=== PATIENT | male | born 1965 | race Caucasian/White ===

== ENCOUNTER 2018-04-14 03:51 | Emergency (ER) | payer MEDICAID ==
[~2018-04-14] VITALS: Ht 172.7 cm; Wt 87.5 kg
[~2018-04-14 03:51] MED LIST: CEPH-572 PO; SULF1TAB49 PO
[2018-04-14] MEDS ORDERED: CefTRIAXone/D5W-Rocephin 1gm 50 ML IV ONE (04:30)
[2018-04-14 04:48] VITALS: BP 138/78
[2018-04-14] MEDS ORDERED: HYDROcodone/acetaminophen 10/325mg tab PO ONE (05:15)
== END 2018-04-14 05:32 | disposition home or self-care (01) ==
LOC: ER 03:52
DX: L03.115 Cellulitis of right lower limb (principal); F17.200 Nicotine dependence, unspecified, uncomplicated; Z79.899 Other long term (current) drug therapy
CPT/HCPCS: 87070; 96365; 99284; A6449; J0696

== ENCOUNTER 2019-02-13 05:56 | Emergency (ER) | payer MEDICAID ==
[~2019-02-13] VITALS: Ht 185.4 cm; Wt 90.9 kg
[2019-02-13] MEDS ORDERED: moxifloxacin 0.5% ophthalmic drops 3ml RIGHTEYE SCH (06:30)
[2019-02-13] MEDS ORDERED: proparacaine 0.5% ophthalmic drops 15ml EACHEYE ONE (06:35)
[2019-02-13] MEDS ORDERED: HYDR-3965 PO (06:39)
[2019-02-13 07:00] VITALS: BP 166/74
== END 2019-02-13 07:03 | disposition home or self-care (01) ==
LOC: ER 05:57
DX: S05.01XA Injury of conjunctiva and corneal abrasion without foreign body, right eye, initial encounter (principal); G89.29 Other chronic pain; Z98.890 Other specified postprocedural states; Z79.899 Other long term (current) drug therapy; W50.0XXA Accidental hit or strike by another person, initial encounter; Y93.89 Activity, other specified; Y92.89 Other specified places as the place of occurrence of the external cause; Y99.8 Other external cause status
CPT/HCPCS: 99283

== ENCOUNTER 2020-05-18 14:54 | Emergency (ER) | payer MEDICAID ==
[~2020-05-18] VITALS: Ht 172.7 cm; Wt 95.5 kg
[2020-05-18] MEDS ORDERED: morphine 4 MG/ML inj SYRINge IV ONE (15:30)
[2020-05-18] MEDS ORDERED: etomidate 2mg/ml inj. IV ONE (15:35)
[2020-05-18] MEDS ORDERED: NAPR-56 PO (16:16)
[2020-05-18 16:46] VITALS: BP 127/77
== END 2020-05-18 17:03 | disposition home or self-care (01) ==
LOC: ER 14:54
DX: S43.084A Other dislocation of right shoulder joint, initial encounter (principal); M25.511 Pain in right shoulder; G89.29 Other chronic pain; Z98.890 Other specified postprocedural states; W19.XXXA Unspecified fall, initial encounter; Y93.89 Activity, other specified; Y92.89 Other specified places as the place of occurrence of the external cause; Y99.8 Other external cause status
CPT/HCPCS: 23650; 73020; 73030; 94760; 99152; 99285

== ENCOUNTER 2020-08-05 14:18 | Inpatient (IN) | payer MEDICAID ==
[~2020-08-05] VITALS: Ht 172.7 cm; Wt 100.0 kg
--- NOTE | 2020-08-05 15:13 | NUR ---
Patient placed in room and is resting comfortably with no requests.
[2020-08-05] MEDS ORDERED: normal saline 1000ML IV soln IV ONE (15:35)
[2020-08-05] MEDS ORDERED: ampicillin/sulbac 3gm/NS 100ml 100 ML IV STA (15:39)
[2020-08-05 15:59] LABS: BASOPHILS # (AUTO) 0.1 X10'3 (0-0.2); BASOPHILS % (AUTO) 0.3 % (0-1); EOSINOPHILS % (AUTO) 0.3 % (0-6); HEMATOCRIT 47.8 % (42.0-52.0); HEMOGLOBIN 16.7 g/dl (14.0-17.9); LYMPHOCYTES # (AUTO) 1.5 X10'3 (1.1-4.8); LYMPHOCYTES % (AUTO) 9.4 % (21-51); MEAN CORPUSCULAR HEMOGLOBIN 29.9 PG (27.0-31.0); MEAN CORPUSCULAR VOLUME 85.5 FL (78-98); MEAN PLATELET VOLUME 7.5 FL (7.4-10.4); MONOCYTES # (AUTO) 1.5 X10'3 (0-0.9); MONOCYTES % (AUTO) 9.4 % (2-12); NEUTROPHILS # (AUTO) 12.7 X10'3 (1.8-7.7); NEUTROPHILS % (AUTO) 80.6 % (42-75); PLATELET COUNT 207 X10'3 (140-440); RED BLOOD COUNT 5.59 X10'6 (4.70-6.10); RED CELL DISTRIBUTION WIDTH 13.5 % (11.5-14.5); WHITE BLOOD COUNT 15.7 X10'3 (4.5-11.0)
[2020-08-05 16:28] LABS: ALANINE AMINOTRANSFERASE 35 U/L (12-78); ALBUMIN/GLOBULIN RATIO 1.1 (1.1-1.5); ALKALINE PHOSPHATASE 95 IU/L (46-116); ANION GAP 12 (8-16); ASPARTATE AMINO TRANSFERASE 13 U/L (10-37); BILIRUBIN,TOTAL 1.5 MG/DL (0.1-1.0); BLOOD UREA NITROGEN 13 MG/DL (7-18); BUN/CREATININE RATIO 9.8 (5.4-32.0); CALCIUM 8.6 MG/DL (8.5-10.1); CHLORIDE 100 MMOL/L (99-107); CREATININE 1.33 MG/DL (0.60-1.10); GLUCOSE 92 MG/DL (70-104); POTASSIUM 3.7 MMOL/L (3.5-5.1); SODIUM 135 MMOL/L (135-145); TOTAL CARBON DIOXIDE 23.2 MMOL/L (24-32); TOTAL PROTEIN 7.7 G/DL (6.4-8.2); eGFR 56 ML/MIN
[2020-08-05] MEDS ORDERED: iohexol 300mg/ml 100ml inj. ONE (16:37)
[2020-08-05 16:52] LABS: PARTIAL THROMBOPLASTIN TIME 31 SECONDS (22-32)
[2020-08-05] MEDS ORDERED: acetaminophen 1,000mg/100ml IV 100 ML IV STA (17:13)
--- NOTE | 2020-08-05 17:46 | NUR ---
Dr Traylor in to evaluate Patient. to see if Hospitalist will admit or if Pt needs transferred. Acetaminophin IV cancelled as pt is no longer febrile.
[2020-08-05] MEDS ORDERED: morphine 2 MG/ML inj. syringe IV PRN ×2 (17:55)
[2020-08-05] MEDS ORDERED: magnesium 4gm in 100ml NS 100 ML IV PRN (17:55)
[2020-08-05] MEDS ORDERED: HYDROcodone/acetaminophen 5mg/325mg tablet PO PRN (17:55)
[2020-08-05] MEDS ORDERED: potassium Cl 20 mEq SR tablet PO PRN ×2 (17:55)
[2020-08-05] MEDS ORDERED: ondansetron/PF 4mg/2ml inj IV PRN (17:55)
[2020-08-05] MEDS ORDERED: magnesium 2GM in 50ml NS 50 ML IV PRN (17:55)
[2020-08-05] MEDS ORDERED: potassium CL 10mEq/100ml bag 100 ML IV PRN ×2 (17:55)
[2020-08-05] MEDS ORDERED: mag hydrox/Alum hydrox/simeth 30ml oral suspension PO PRN (17:55)
[2020-08-05] MEDS ORDERED: magnesium Cl slow-release 64mg tablet PO PRN (17:55)
[2020-08-05] MEDS ORDERED: magnesium hydroxide 30ml (MOM) UD suspension PO PRN (17:55)
[2020-08-05] MEDS ORDERED: acetaminophen 325mg tablet PO PRN (17:55)
[2020-08-05] MEDS: normal saline 1000ml 1,000 ML IV SCH (18:09)
[2020-08-05] MEDS ORDERED: NO HOME MEDS (18:31)
--- NOTE | 2020-08-05 19:40 | NUR ---
Received patient report from ER nurse Jung HENSLEY. Will assume patient care.
[2020-08-05 21:00] VITALS: BP 175/67
[2020-08-05] MEDS ORDERED: temazepam 15mg capsule PO PRN (21:00)
[2020-08-05] MEDS: K and/or MAG REPLACEMENT MC SCH (21:08)
[2020-08-05] MEDS: heparin, porcine 5000 units/ml vial SQ SCH (21:15)
[2020-08-05] MEDS: vancomycin/NS 1 GM ADD-VANTAGE 250 ML IV SCH (21:49)
[2020-08-05] MEDS: HYDROcodone/acetaminophen 10/325mg tab PO PRN (22:07)
[2020-08-05 22:30] LABS: URINE AMPHETAMINE SCREEN POSITIVE (Neg); URINE BARBITUATE SCREEN NEGATIVE (Neg); URINE BENZODIAZEPINES SCREEN NEGATIVE (Neg); URINE CANNABINOID SCREEN POSITIVE (Neg); URINE COCAINE SCREEN NEGATIVE (Neg); URINE METHADONE SCREEN NEGATIVE (Neg); URINE OPIATE SCREEN NEGATIVE (Neg); URINE PHENCYCLIDINE SCREEN NEGATIVE (Neg)
[2020-08-06] VITALS: BP 133/77
[2020-08-06] MEDS: normal saline 1000ml 1,000 ML IV SCH ×3 (04:20→23:55)
[2020-08-06 05:28] LABS: BASOPHILS # (AUTO) 0.1 X10'3 (0-0.2); BASOPHILS % (AUTO) 0.5 % (0-1); EOSINOPHILS # (AUTO) 0.1 X10'3 (0-0.9); EOSINOPHILS % (AUTO) 0.5 % (0-6); HEMATOCRIT 42.7 % (42.0-52.0); HEMOGLOBIN 14.8 g/dl (14.0-17.9); LYMPHOCYTES % (AUTO) 16.9 % (21-51); MEAN CORPUSCULAR HEMOGLOBIN 29.8 PG (27.0-31.0); MEAN CORPUSCULAR HGB CONC 34.6 g/dL (33.0-36.5); MEAN CORPUSCULAR VOLUME 85.9 FL (78-98); MEAN PLATELET VOLUME 7.8 FL (7.4-10.4); MONOCYTES # (AUTO) 1.1 X10'3 (0-0.9); MONOCYTES % (AUTO) 9.7 % (2-12); NEUTROPHILS # (AUTO) 8.5 X10'3 (1.8-7.7); NEUTROPHILS % (AUTO) 72.4 % (42-75); PLATELET COUNT 193 X10'3 (140-440); RED BLOOD COUNT 4.97 X10'6 (4.70-6.10); RED CELL DISTRIBUTION WIDTH 13.5 % (11.5-14.5); WHITE BLOOD COUNT 11.7 X10'3 (4.5-11.0)
[2020-08-06 05:43] LABS: ALANINE AMINOTRANSFERASE 26 U/L (12-78); ALBUMIN 3.2 G/DL (3.4-5.0); ALKALINE PHOSPHATASE 74 IU/L (46-116); ANION GAP 7 (8-16); ASPARTATE AMINO TRANSFERASE 18 U/L (10-37); BILIRUBIN,TOTAL 0.9 MG/DL (0.1-1.0); BLOOD UREA NITROGEN 12 MG/DL (7-18); BUN/CREATININE RATIO 9.7 (5.4-32.0); CALCIUM 8.1 MG/DL (8.5-10.1); CHLORIDE 104 MMOL/L (99-107); CREATININE 1.24 MG/DL (0.60-1.10); GLUCOSE 99 MG/DL (70-104); MAGNESIUM 1.8 MG/DL (1.5-2.4); POTASSIUM 4.1 MMOL/L (3.5-5.1); SODIUM 138 MMOL/L (135-145); TOTAL CARBON DIOXIDE 27.3 MMOL/L (24-32); TOTAL PROTEIN 6.5 G/DL (6.4-8.2); eGFR 61 ML/MIN
--- NOTE | 2020-08-06 06:29 | NUR ---
Patient in room [facility]. I have received report from AYDEN Vazquez and had the opportunity to ask questions and assume patient care.
--- NOTE | 2020-08-06 06:32 | NUR ---
Problems reprioritized. Patient report given, questions answered & plan of care reviewed with Taylor HENSLEY.
--- NOTE | 2020-08-06 06:56 | NUR ---
Patient in room [facility]. I have received report from Aracely HENSLEY and had the opportunity to ask questions and assume patient care.
[2020-08-06 07:00] VITALS: BP 112/63
[2020-08-06] MEDS: K and/or MAG REPLACEMENT MC SCH ×2 (08:00→20:00)
[2020-08-06] MEDS: heparin, porcine 5000 units/ml vial SQ SCH ×2 (08:01→21:11)
[2020-08-06] MEDS: amox tr/clav. pot 400mg/5ml 100ml suspension PO SCH ×2 (08:08→17:34)
[2020-08-06] MEDS: vancomycin/NS 1 GM ADD-VANTAGE 250 ML IV SCH ×2 (10:22→21:12)
--- NOTE | 2020-08-06 11:02 | NUR ---
Problems reprioritized. Patient report given, questions answered & plan of care reviewed with Maricruz HENSLEY.
--- NOTE | 2020-08-06 11:05 | NUR ---
Patient in room [facility]. I have received report from Taylor HENSLEY and had the opportunity to ask questions and assume patient care.
[2020-08-06 11:15] VITALS: BP 126/71
--- NOTE | 2020-08-06 11:25 | NUR ---
Reviewed and agree with Pt Physical Assessment done by Taylor HENSLEY at 0800.
[2020-08-06 11:30] VITALS: BP 126/71
--- NOTE | 2020-08-06 11:30 | NUR ---
Pt's Maricarmne phoned, wanted call back at [phone]. Per Pt, he will call her in a bit.
--- NOTE | 2020-08-06 12:04 | NUR ---
Student Medication Administration: For this medication-pass time frame, all medication were reviewed, dispensed, administered and documented per hospital policy by [facility] assistant administrator.
--- NOTE | 2020-08-06 12:04 | NUR ---
Student documentation: I have reviewed and agree with all interventions, assessments performed and documented by [facility], executive director of nursing.
--- NOTE | 2020-08-06 12:07 | NUR ---
Problems reprioritized. Patient report given, questions answered & plan of care reviewed with AYDEN Wall.
--- NOTE | 2020-08-06 18:23 | NUR ---
Problems reprioritized. Patient report given, questions answered & plan of care reviewed with Aracely HENSLEY.
[2020-08-06 20:00] VITALS: BP 141/70
[2020-08-06] MEDS: lactobacillus rhamnosus 10,000 MMU CELLS/CAPSULE PO SCH (21:11)
[2020-08-06] MEDS: HYDROcodone/acetaminophen 10/325mg tab PO PRN (21:18)
[2020-08-07] VITALS: BP 133/76
[2020-08-07] MEDS: normal saline 1000ml 1,000 ML IV SCH (02:17)
--- NOTE | 2020-08-07 06:11 | NUR ---
Problems reprioritized. Patient report given, questions answered & plan of care reviewed with [facility] RN and Student nurse Will RN.
--- NOTE | 2020-08-07 06:30 | NUR ---
Patient in room [facility]. I have received report from AYDEN Jessica and had the opportunity to ask questions and assume patient care.
--- NOTE | 2020-08-07 06:51 | NUR ---
Patient in room [facility]. I have received report from AYDEN Ramsay and had the opportunity to ask questions and assume patient care.
[2020-08-07 07:00] VITALS: BP 118/75
[2020-08-07] MEDS ORDERED: VANCOMYCIN LEVEL IV ONE (07:30)
[2020-08-07] MEDS: heparin, porcine 5000 units/ml vial SQ SCH (07:59)
[2020-08-07] MEDS: vancomycin/NS 1 GM ADD-VANTAGE 250 ML IV SCH (07:59)
[2020-08-07] MEDS: K and/or MAG REPLACEMENT MC SCH (08:00)
[2020-08-07] MEDS: amox tr/clav. pot 400mg/5ml 100ml suspension PO SCH (08:27)
[2020-08-07] MEDS: lactobacillus rhamnosus 10,000 MMU CELLS/CAPSULE PO SCH (08:27)
[2020-08-07 09:00] LABS: BASOPHILS # (AUTO) 0.1 X10'3 (0-0.2); BASOPHILS % (AUTO) 0.6 % (0-1); EOSINOPHILS # (AUTO) 0.2 X10'3 (0-0.9); HEMATOCRIT 44.5 % (42.0-52.0); HEMOGLOBIN 15.5 g/dl (14.0-17.9); LYMPHOCYTES # (AUTO) 1.7 X10'3 (1.1-4.8); LYMPHOCYTES % (AUTO) 18.4 % (21-51); MEAN CORPUSCULAR HGB CONC 34.8 g/dL (33.0-36.5); MEAN CORPUSCULAR VOLUME 86.2 FL (78-98); MEAN PLATELET VOLUME 7.7 FL (7.4-10.4); MONOCYTES # (AUTO) 0.5 X10'3 (0-0.9); MONOCYTES % (AUTO) 5.7 % (2-12); NEUTROPHILS # (AUTO) 6.8 X10'3 (1.8-7.7); NEUTROPHILS % (AUTO) 73.3 % (42-75); PLATELET COUNT 203 X10'3 (140-440); RED BLOOD COUNT 5.17 X10'6 (4.70-6.10); RED CELL DISTRIBUTION WIDTH 13.7 % (11.5-14.5); WHITE BLOOD COUNT 9.3 X10'3 (4.5-11.0)
[2020-08-07 09:04] LABS: ALANINE AMINOTRANSFERASE 31 U/L (12-78); ALBUMIN 3.2 G/DL (3.4-5.0); ALBUMIN/GLOBULIN RATIO 0.9 (1.1-1.5); ALKALINE PHOSPHATASE 79 IU/L (46-116); ASPARTATE AMINO TRANSFERASE 14 U/L (10-37); BILIRUBIN,TOTAL 0.5 MG/DL (0.1-1.0); BLOOD UREA NITROGEN 14 MG/DL (7-18); CALCIUM 8.2 MG/DL (8.5-10.1); GLUCOSE 99 MG/DL (70-104); TOTAL CARBON DIOXIDE 29.1 MMOL/L (24-32); TOTAL PROTEIN 6.8 G/DL (6.4-8.2); VANCOMYCIN,TROUGH 6.8 UG/ML (6.0-14.0)
--- NOTE | 2020-08-07 09:05 | NUR ---
Student Medication Administration: For this medication-pass time frame, all medication were reviewed, dispensed, administered and documented per hospital policy by [facility] professional nursing assistant.
[2020-08-07 09:41] LABS: ANION GAP 3 (8-16); BUN/CREATININE RATIO 14.9 (5.4-32.0); CHLORIDE 106 MMOL/L (99-107); CREATININE 0.94 MG/DL (0.60-1.10); SODIUM 138 MMOL/L (135-145); eGFR 83 ML/MIN
--- NOTE | 2020-08-07 10:19 | NUR ---
Problems reprioritized. Patient report given, questions answered & plan of care reviewed with AYDEN Ramsay.
[2020-08-07] MEDS ORDERED: AMOX400S76 PO (10:32)
[2020-08-07 11:00] VITALS: BP 136/70
[2020-08-07] MEDS ORDERED: vancomycin/NS 1 GM ADD-VANTAGE 250 ML IV SCH (16:00)
[2020-08-08] MEDS ORDERED: VANCOMYCIN LEVEL IV ONE (15:30)
== END 2020-08-07 12:37 | disposition home or self-care (01) | DRG 383 ==
LOC: ER 14:18 → ED HOLD 17:55 → SUR 3N 19:55
PROVIDERS: ADMIT Internal Medicine; ATTEND Internal Medicine
PROC: BN251ZZ Computerized Tomography (CT Scan) of Facial Bones using Low Osmolar Contrast (ICD-10-PCS; principal; 2020-08-05)
DX: L03.213 Periorbital cellulitis (principal); F15.10 Other stimulant abuse, uncomplicated; F17.210 Nicotine dependence, cigarettes, uncomplicated; N18.3 Chronic kidney disease, stage 3 (moderate); G89.29 Other chronic pain; R03.0 Elevated blood-pressure reading, without diagnosis of hypertension; K02.9 Dental caries, unspecified; L03.211 Cellulitis of face; K04.7 Periapical abscess without sinus; Z71.51 Drug abuse counseling and surveillance of drug abuser
CPT/HCPCS: 36415; 70487; 80053; 80202; 80305; 83605; 83735; 84145; 85025; 85610; 85730; 87040; 87081; 96365; 99285; G0378; J0295; J1644; J3370; J7030; Q9967

== ENCOUNTER 2021-02-23 22:21 | Emergency (ER) | payer MEDICAID ==
[~2021-02-23] VITALS: Ht 172.7 cm; Wt 100.0 kg
[~2021-02-23 22:21] MED LIST changes: +AMOX400S76 PO; -CEPH-572 PO; +NO HOME MEDS; -SULF1TAB49 PO
[2021-02-24] MEDS ORDERED: oxyCODONE/APAP 5-325mg tablet PO ONE (02:05)
[2021-02-24] MEDS ORDERED: LIDOcaine 1% W/epiNEPHrine 1:200,000 10ml vial IJ ONE (02:05)
[2021-02-24 04:21] LABS: APPEARANCE,SYNOVIAL FLUID HAZY; COLOR,SYNOVIAL FLUID YELLOW
[2021-02-24 04:22] LABS: SYN RBC 6930 /CU MM (0); SYN WBC 0 /CU MM (0-200); SYNOVIAL FLUID CRYSTALS QT NO CRYSTALS SEEN
[2021-02-24 04:49] VITALS: BP 120/88
== END 2021-02-24 05:05 | disposition home or self-care (01) ==
LOC: ER 22:21
DX: M25.561 Pain in right knee (principal); G89.29 Other chronic pain; F17.200 Nicotine dependence, unspecified, uncomplicated; F12.90 Cannabis use, unspecified, uncomplicated; F15.90 Other stimulant use, unspecified, uncomplicated; Z98.890 Other specified postprocedural states; W10.8XXA Fall (on) (from) other stairs and steps, initial encounter; Y93.89 Activity, other specified; Y92.89 Other specified places as the place of occurrence of the external cause; Y99.8 Other external cause status
CPT/HCPCS: 20610; 87070; 89051; 89060; 99285

== ENCOUNTER 2024-02-27 15:40 | Emergency (ER) | payer MEDICAID ==
[~2024-02-27] VITALS: Ht 172.7 cm; Wt 94.5 kg
[2024-02-27] MEDS ORDERED: ketorolac trometh. 30mg/ml inj. IM ONE (16:30)
[2024-02-27] MEDS: oxyCODONE IR 5mg (immed. release) tablet PO ONE (16:38)
[2024-02-27] MEDS: ondansetron 4mg rapidly disintigrating tab PO ONE (16:39)
[2024-02-27] MEDS: orphenadrine citrate 60mg/2ml inj. IM ONE (16:41)
[2024-02-27] MEDS: ketorolac tromethamine 15mg/ml inj. IM ONE (16:42)
[2024-02-27] MEDS: HYDROmorphone inj. 0.5 MG/0.5 ML DISP.SYRIN IM ONE (18:13)
[2024-02-27] MEDS ORDERED: NAPR-56 PO (18:20)
[2024-02-27] MEDS ORDERED: OXYC-658 PO (18:29)
[2024-02-27] MEDS ORDERED: BACL10TA2 PO (18:30)
[2024-02-27 18:43] VITALS: BP 121/70; PULSE 74; RESP 15; TEMP 97.3; O2SAT 95
== END 2024-02-27 18:48 | disposition home or self-care (01) ==
LOC: ER 15:40
DX: M54.50 Low back pain, unspecified (principal); F12.90 Cannabis use, unspecified, uncomplicated; F15.90 Other stimulant use, unspecified, uncomplicated; Z79.899 Other long term (current) drug therapy; Z79.2 Long term (current) use of antibiotics
CPT/HCPCS: 72131; 96372; 99285; J1170; J1885; J2360

== ENCOUNTER 2025-04-12 14:08 | Emergency (ER) | payer MEDICAID ==
[~2025-04-12] VITALS: Ht 174 cm; Wt 100.0 kg
[~2025-04-12 14:08] MED LIST changes: +BACL10TA2 PO
[2025-04-12 14:20] VITALS: BP 140/81; PULSE 77; RESP 18; TEMP 97.1; O2SAT 100
--- NOTE | 2025-04-12 15:22 | Physician Documentation ---
History of Present Illness ~ Chief Complaint: Wound Stated Complaint: FALL HAND AND LEG PAIN Time Seen by MD: 15:34 Primary Medical Doctor: HILTON WHEELER HPI This 59-year-old male who presents with right hand pain and right white pain this a wound swelling to right white three days after a fall striking a wood pile. Patient reports no fever though reports chills. Patient reports his right 2nd finger is tender when gripping objects though otherwise nontender. Tetanus within 5 years?: No Medication Reconciliation Allergies: Coded Allergies: No Known Allergies (Unverified , 02/13/19) Scheduled Amoxicillin/Potassium Clav (Amox Tr-K Clv 400-57/5 Susp), 400 MG PO BID@0830,1730 Baclofen (Baclofen), 1 TAB PO Q8H Clindamycin HCl (Clindamycin HCl CAPSULE), 3 CAP PO TID Miscellaneous Medications Home Med List (No Home Medications), (Reported) Past Medical History Past Medical History: Chronic Pain Past Surgical History: orthopedic surgeries Alcohol Use: None Drug Use: marijuana, methamphetamine Lives with: Family Lives In: Home Occupation: employed Review of Systems ROS Wound to right white and right hand pain as stated above in the HPI, otherwise all systems are reviewed and negative. Physical Exam Vital Signs: Temperature: 97.1, Source: Temporal, Heart Rate: 77, Respiratory Rate: 18, BP: 140/81, Pulse Oximetry: 100, Weight: 100.000 Oxygen Flow Rate: 0 Physical Exam VITALS: Reviewed and as above. GENERAL: Alert, nontoxic appearing, no apparent distress. RESPIRATORY: No increased work of breathing, no respiratory distress, speaking in full clear sentences MUSCULOSKELETAL: Minimal Swelling without erythema or ecchymosis to dorsal radial aspect of right hand, right anterior white minimally swollen, no obvious deformity, strength and range of motion intact to fingers of right hand, sensation intact, brisk capillary refill SKIN: approximately 2.5 cm x 2.5 cm abrasion to the anterior of right white with purulent drainage and surrounding erythema, no fluctuance, no induration Progress Results/Orders Results/Orders Orders - BERNARDA COOMBS Hand, Complete (3vw Min) (04/12/25 14:56) Tib/Fib (04/12/25 14:56) Completed Orders - BERNARDA COOMBS Hand, Complete (3vw Min) (04/12/25 14:56) Tib/Fib (04/12/25 14:56) Vital Signs 04/12/25 14:20 Temp 97.1 Pulse 77 Resp 18 B/P (MAP) 140/81 Pulse Ox 100 O2 Flow Rate 0 EKG/XRAY/CT/US/VASC/MRI Bone/Soft Tissue X-Ray (Ext.) #1: Additional Comment CLINICAL INDICATION: trauma TECHNIQUE: 3 radiographic views of the right hand were obtained. Comparison: None FINDINGS/IMPRESSION: There is no evidence of acute fracture or dislocation. Chronic right 5th metacarpal shaft fracture. The visualized joint space is well maintained. The alignment is anatomical. There is no radiopaque foreign body. Electronically Signed by:NAPOLEON ROWLAND MD Date & Time: 04/12/251534 Dictated by: NAPOLEON ROWLAND MD Dictation date and time: 04/12/251534 I have reviewed and agree with the radiology report. I have reviewed and interpreted the imaging as: No fracture or dislocation Bone/Soft Tissue X-Ray (Ext.) #2: Additional Comment CLINICAL INDICATION: trauma TECHNIQUE: 4 radiographic views of the right tibia/fibula were obtained. Comparison: None FINDINGS/IMPRESSION: There is no evidence of acute fracture or dislocation. The visualized joint space is well maintained. The alignment is anatomical. There is no radiopaque foreign body. Electronically Signed by:NAPOLEON ROWLAND MD Date & Time: 04/12/251533 Dictated by: NAPOLEON ROWLAND MD Dictation date and time: 04/12/251533 I have reviewed and agree with the radiology report. I have reviewed and interpreted the imaging as: No fracture or dislocation Medical Decision Making Findings This 59-year-old male presented with abrasion to the right white with some surrounding erythema and pain to his right hand after a fall approximately three days prior onto a wood pile, x-rays were obtained of both sites without evidence of fracture or dislocation. Physical exam of the hand demonstrated full strength and sensation intact with brisk capillary refill indicating hand is neurovascularly intact without evidence of tendon injury, there was some pain elicited to the hand with minimal swelling consistent with localized soft tissue injury. Physical exam of the right white demonstrated an abrasion with evidence of infection and early cellulitis, as there was some purulent discharge from the wound patient will be treated with Bactrim. Physical exam did not demonstrate evidence of retained foreign bodies in hands or white. Otherwise patient's physical exam was benign and vital signs stable, patient is appropriate for outpatient follow up. Patient provided home care instructions and return to care precautions which he verbalized understanding of. Differential Dx:Considerations: Include: Abscess, Cellulitis, Other (Fractures, tendon injury, neurovascular injury, retained foreign body) Departure Time of Disposition: 16:37 Disposition: 01 HOME / SELF CARE / HOMELESS Impression: Primary Impression: Wound cellulitis Additional Impression: Right hand pain Condition: Improved Discharge Instructions: Cellulitis, Adult Additional Instructions: Please take the antibiotics as prescribed. Use a warm moist compress on the area and clean the area two to three times a day until drainage from the wounds stops, keep the area clean dry and covered. You may use ibuprofen and or Tylenol as directed by [id number] package as needed for pain. Please follow up with your primary care provider in the next few days. Please return to the emergency department for any new or worsening concerning symptoms including but not limited to worsening pain or swelling, or if you develop a fever above 100.4 No swimming until your wound is healed Referrals: NO PRIMARY CARE PROVIDER (PCP) Prescriptions Clindamycin HCl (Clindamycin HCl CAPSULE) 150 Mg Capsule 3 CAP PO TID for 7 Days, #63 CAP Prov: BERNARDA COOMBSP 04/12/25 Education Educated: Patient Educated regarding: diagnosis, treatment, prognosis, need for follow up Signature Scribe Signature: No scribe Attestation: The note accurately reflects work and decisions made by me.RENATA Hernandez 04/13/25 02:16 BERNARDA COOMBS April 12, 2025 15:22
--- NOTE | 2025-04-12 15:36 | RADIOLOGY REPORT ---
CLINICAL INDICATION: trauma TECHNIQUE: 4 radiographic views of the right tibia/fibula were obtained. Comparison: None FINDINGS/IMPRESSION: There is no evidence of acute fracture or dislocation. The visualized joint space is well maintained. The alignment is anatomical. There is no radiopaque foreign body.
--- NOTE | 2025-04-12 15:37 | RADIOLOGY REPORT ---
CLINICAL INDICATION: trauma TECHNIQUE: 3 radiographic views of the right hand were obtained. Comparison: None FINDINGS/IMPRESSION: There is no evidence of acute fracture or dislocation. Chronic right 5th metacarpal shaft fracture. The visualized joint space is well maintained. The alignment is anatomical. There is no radiopaque foreign body.
[2025-04-12] MEDS ORDERED: CLIN-214 PO (16:42)
== END 2025-04-12 17:06 | disposition home or self-care (01) ==
LOC: ER 14:08
DX: S80.811A Abrasion, right lower leg, initial encounter (principal); L03.113 Cellulitis of right upper limb; X58.XXXA Exposure to other specified factors, initial encounter; Y93.89 Activity, other specified; Y92.89 Other specified places as the place of occurrence of the external cause; Y99.8 Other external cause status
CPT/HCPCS: 73130; 73590; 99284

== ENCOUNTER 2025-04-17 23:23 | Inpatient (IN) | payer MEDICAID ==
[~2025-04-17] VITALS: Ht 175.3 cm; Wt 85.5 kg
[~2025-04-17 23:23] MED LIST changes: +CLIN-214 PO
--- NOTE | 2025-04-18 00:35 | Physician Documentation ---
History of Present Illness ~ Chief Complaint: Leg Pain Stated Complaint: LEG PAIN Primary Medical Doctor: HILTON WHEELER [facility] This is a 59-year-old male who presents back to the emergency department with right leg pain and swelling extending into his knee, patient was seen proximally one-week ago for a wound to the anterior surface of his right lower extremity, patient was placed on Bactrim which he has been taking as prescribed. Patient reports that the wound the area has not been improving in the surrounding leg and knee are beginning to become painful. Patient reports it hurts to walk. Patient reports subjective fever and chills. Tetanus witin 5 years: No Medication Reconciliation Allergies: Coded Allergies: No Known Allergies (Unverified , 02/13/19) Scheduled Baclofen (Baclofen), 1 TAB PO Q8H Doxycycline Hyclate (Doxycycline Hyclate), 1 CAP PO Q12H Miscellaneous Medications Home Med List (No Home Medications), (Reported) Past Medical History Past Medical History: Chronic Pain Past Surgical History: orthopedic surgeries Alcohol Use: None Drug Use: marijuana, methamphetamine Lives with: Family Lives In: Home Occupation: employed Review of Systems ROS As stated above in the HPI, otherwise all systems are reviewed and negative. Physical Exam Vital Signs: Temperature: 98.5, Source: Oral, Heart Rate: 75, Respiratory Rate: 18, BP: 147/75, Pulse Oximetry: 98, Weight: 85.550 Oxygen Flow Rate: 0 Physical Exam VITALS: Reviewed and as above. GENERAL: Alert, nontoxic appearing, no apparent distress. RESPIRATORY: No increased work of breathing, no respiratory distress, speaking in full clear sentences MUSCULOSKELETAL: Right lower extremity erythema, induration, 1+ pitting edema. Right knee is tender to palpation in all aspects and exquisitely tender to active and passive range of motion SKIN: Anterior proximal lower extremity skin is erythematous with a 1.5 cm x 1.5 cm shallow wound with purulent drainage present Progress Results/Orders Results/Orders Orders - BERNARDA COOMBS Saline Lock (04/18/25 00:26) Knee, Complete (04/18/25 00:26) Completed Orders - BERNARDA COOMBS Cbc/Diff (04/18/25 00:26) Culture Blood (04/18/25 00:26) Procalcitonin (04/18/25 00:26) Lacticsepsis (04/18/25 00:26) CMP (04/18/25 00:26) ESR (04/18/25 00:26) C-Reactive Protein (04/18/25 00:26) Knee, Complete (04/18/25 00:26) Laboratory Tests Test 04/18/25 00:31 White Blood Count 11.6 H Red Blood Count 5.14 Hemoglobin 14.5 Hematocrit 43.1 Mean Corpuscular Volume 83.9 Mean Corpuscular Hemoglobin 28.2 Mean Corpuscular Hemoglobin Concent 33.6 Red Cell Distribution Width 13.2 Platelet Count 257 Mean Platelet Volume 7.0 L Neutrophils (%) (Auto) 77.6 H Lymphocytes (%) (Auto) 14.8 L Monocytes (%) (Auto) 6.2 Eosinophils (%) (Auto) 0.9 Basophils (%) (Auto) 0.5 Neutrophils # (Auto) 9.0 H Lymphocytes # (Auto) 1.7 Monocytes # (Auto) 0.7 Eosinophils # (Auto) 0.1 Basophils # (Auto) 0.1 CBC Comment Erythrocyte Sedimentation Rate 5 Sodium Level 139 Potassium Level 3.9 Chloride Level 103 Carbon Dioxide Level 26.3 Anion Gap 10 Blood Urea Nitrogen 12 Creatinine 1.16 H Estimated GFR/1.73 m2 64 BUN/Creatinine Ratio 10.3 Glucose Level 136 H Lactic Acid Level 2.0 Calcium Level 8.5 Total Bilirubin 0.4 Aspartate Amino Transf (AST/SGOT) 17 Alanine Aminotransferase (ALT/SGPT) 32 Alkaline Phosphatase 125 H C-Reactive Protein 9.38 H Total Protein 7.0 Albumin 3.3 L Globulin 3.7 Albumin/Globulin Ratio 0.9 L Procalcitonin < 0.05 Chemistry Comments Microbiology Date/Time Source Procedure Growth Status 04/18/25 00:35 Blood Arm Right Blood Culture - Final NO GROWTH AFTER 5 DAYS Complete Medical Decision Making Findings MSE performed in triage and patient returned to ED lobby by nursing staff, I suspect this to be a septic joint and cellulitis that has failed outpatient antibiotics requiring inpatient admission for IV antibiotics. Attending ED MD is aware of patient and will see patient has been placed in room by nursing staff when ED bed becomes available. Patient is hemodynamically stable and appropriate for a short wait in ED lobby. Patient appears to have eloped Knee Diff Dx:Considerations: Include: Abrasion, Arthritis, Contusion, DJD, Fracture-femur, Fracture-fibula, Fracture-patella, Fracture-tibia, Gout, Hematoma, Laceration, Meniscus injury, Neurovascular injury, Open fracture, Rheumatoid arthritis, Septic, Sprain Departure Disposition: 07 LEFT AWOL/ELOPED Impression: Primary Impression: Knee pain Qualified Codes: M25.561 - Pain in right knee Referrals: NO PRIMARY CARE PROVIDER (PCP) Prescriptions Doxycycline Hyclate (Doxycycline Hyclate) 100 Mg Capsule 1 CAP PO Q12H for 7 Days, #14 CAP Prov: ALMA RYDER MD 04/20/25 Signature Scribe Signature: No Scribe Attestation: The note accurately reflects work and decisions made by me.RENATA Hernandez 04/27/25 23:17 BERNARDA COOMBS Apr 18, 2025 00:35
[2025-04-18 00:57] LABS: BASOPHILS # (AUTO) 0.1 X10'3 (0-0.2); BASOPHILS % (AUTO) 0.5 % (0-1); EOSINOPHILS # (AUTO) 0.1 X10'3 (0-0.9); EOSINOPHILS % (AUTO) 0.9 % (0-6); HEMATOCRIT 43.1 % (42.0-52.0); HEMOGLOBIN 14.5 g/dl (14.0-17.9); LYMPHOCYTES # (AUTO) 1.7 X10'3 (1.1-4.8); LYMPHOCYTES % (AUTO) 14.8 % (21-51); MEAN CORPUSCULAR HEMOGLOBIN 28.2 PG (27.0-31.0); MEAN CORPUSCULAR HGB CONC 33.6 g/dL (33.0-36.5); MEAN CORPUSCULAR VOLUME 83.9 FL (78-98); MONOCYTES # (AUTO) 0.7 X10'3 (0-0.9); MONOCYTES % (AUTO) 6.2 % (2-12); NEUTROPHILS % (AUTO) 77.6 % (42-75); PLATELET COUNT 257 X10'3 (140-440); RED BLOOD COUNT 5.14 X10'6 (4.70-6.10); RED CELL DISTRIBUTION WIDTH 13.2 % (11.5-14.5); WHITE BLOOD COUNT 11.6 X10'3 (4.5-11.0)
[2025-04-18 01:10] LABS: ALANINE AMINOTRANSFERASE 32 U/L (12-78); ALBUMIN 3.3 G/DL (3.4-5.0); ALBUMIN/GLOBULIN RATIO 0.9 (1.1-1.5); ALKALINE PHOSPHATASE 125 IU/L (46-116); ANION GAP 10 (8-16); ASPARTATE AMINO TRANSFERASE 17 U/L (10-37); BILIRUBIN,TOTAL 0.4 MG/DL (0.1-1.0); BLOOD UREA NITROGEN 12 MG/DL (7-18); BUN/CREATININE RATIO 10.3 (10.0-20.0); C-REACTIVE PROTEIN 9.38 MG/DL (0.0-0.5); CALCIUM 8.5 MG/DL (8.5-10.1); CHLORIDE 103 MMOL/L (99-107); CREATININE 1.16 MG/DL (0.60-1.10); GLUCOSE 136 MG/DL (70-104); POTASSIUM 3.9 MMOL/L (3.5-5.1); SODIUM 139 MMOL/L (135-145); TOTAL CARBON DIOXIDE 26.3 MMOL/L (24-32); eCRCL 68 ML/MIN; eGFR 64 ML/MIN
--- NOTE | 2025-04-18 01:18 | RADIOLOGY REPORT ---
CLINICAL INDICATION: Knee Pain TECHNIQUE: DI KNEE, COMP 4 VW MIN Comparison: None FINDINGS/IMPRESSION: : There is no evidence of acute fracture or dislocation. Soft tissues are unremarkable.
[2025-04-18] MEDS ORDERED: vancomycin inj 1,000 MG in normal saline 250ml IV soln 250 ML IV ONE (05:30)
[2025-04-18] MEDS: ketorolac trometh 15mg/ml vial 15 MG/ML ML IV ONE (06:11)
[2025-04-18] MEDS: normal saline 1000ml 1,000 ML IV ONE (06:12)
[2025-04-18] MEDS: vancomycin/NS 1 GM ADD-VANTAGE 250 ML X 1 DOSE IV ONE (06:36)
--- NOTE | 2025-04-18 07:13 | VASCULAR REPORT ---
EXAM: US Duplex Left Lower Extremity Veins CLINICAL INDICATION: Reason TECHNIQUE: Real-time duplex ultrasound scan of the left lower extremity veins integrating B-mode two -dimensional vascular structure, Doppler spectral analysis, color flow Doppler imaging and compressio n. COMPARISON: None FINDINGS: DEEP VEINS: Unremarkable. No DVT in the visualized common femoral, femoral, proximal deep femoral or popliteal veins. The veins demonstrate normal color flow, are normally compressible, with normal phasic flow and/or augmentation response. SUPERFICIAL VEINS: Unremarkable. No thrombus in the visualized great saphenous vein. SOFT TISSUES: No acute findings. No popliteal cyst. OTHER FINDINGS: . IMPRESSION: No DVT.
--- NOTE | 2025-04-18 07:48 | Physician Documentation ---
History of Present Illness ~ Chief Complaint: Leg Pain Stated Complaint: LEG PAIN Time Seen by MD: 06:18 Primary Medical Doctor: HILTON WHEELER Mode of Arrival: POV HPI Patient is here with a right lower leg cellulitis. Initially seen by previous provider and care was signed out to me. Said he scraped it playing with his dog suffered a small abrasion of the proximal anterior right lower leg he is still to the patellar tendon insertion. He said that he has been on Bactrim has been taking it as directed. He has increasing pain and swelling. Tetanus within 5 years?: Yes Medication Reconciliation Allergies: Coded Allergies: No Known Allergies (Unverified , 02/13/19) Scheduled Amoxicillin/Potassium Clav (Amox Tr-K Clv 400-57/5 Susp), 400 MG PO BID@0830,1730 Baclofen (Baclofen), 1 TAB PO Q8H Clindamycin HCl (Clindamycin HCl CAPSULE), 3 CAP PO TID Miscellaneous Medications Home Med List (No Home Medications), (Reported) Past Medical History Past Medical History: Chronic Pain Past Surgical History: orthopedic surgeries Alcohol Use: None Drug Use: marijuana, methamphetamine Lives with: Family Lives In: Home Occupation: employed Physical Exam Vital Signs: Temperature: 98.5, Source: Oral, Heart Rate: 72, Respiratory Rate: 15, BP: 146/68, Pulse Oximetry: 100, Weight: 85.550 Oxygen Flow Rate: 0 Physical Exam General: Awake and Alert, no acute distress. HEENT: Conjunctiva pink, Sclera clear, Mucus Membranes moist. Neck: Supple without masses and tenderness. Resp: Unlabored. Lungs clear to auscultation bilaterally. Heart: Regular Rate and rhythm, normal S1 and S2 without murmur, rub or gallop. Abdomen: Soft and non tender no organomegaly Extremities: No cyanosis,clubbing or edema. He anterior aspect of the proximal right lower leg there is a small break in the skin with a surrounding erythema that is warm to touch. Does not appear to have a joint effusion. He had a bend his knee he has pain over the area of cellulitis and not in the knee joint. Skin: Warm and Dry. Neuro: GCS 15; no focal deficits Progress Results/Orders Results/Orders Medications Received in ER Medications (Trade) Dose Ordered Sig/Santos Route PRN Reason Start Time Stop Time Status Last Admin Dose Admin (Toradol injection) 15 mg ONCE ONCE IV 04/18/25 05:30 04/18/25 05:31 DC 04/18/25 06:11 15 MG Sodium Chloride 1,000 ml @ 1,000 mls/hr ONCE ONCE IV 04/18/25 05:30 04/18/25 06:29 DC 04/18/25 06:12 1,000 MLS/HR Vancomycin HCl 250 ml @ 166 mls/hr ONCE ONCE IV 04/18/25 06:30 04/18/25 08:00 04/18/25 06:36 166 MLS/HR Vital Signs 04/17/25 04/18/25 04/18/25 04/18/25 23:34 05:14 05:46 06:43 Temp 98.5 Pulse 75 67 72 Resp 18 16 18 15 B/P (MAP) 147/75 154/95 (114) 146/68 (94) Pulse Ox 98 99 100 O2 Flow Rate 0 0 Laboratory Tests Test 04/18/25 00:31 White Blood Count 11.6 H Red Blood Count 5.14 Hemoglobin 14.5 Hematocrit 43.1 Mean Corpuscular Volume 83.9 Mean Corpuscular Hemoglobin 28.2 Mean Corpuscular Hemoglobin Concent 33.6 Red Cell Distribution Width 13.2 Platelet Count 257 Mean Platelet Volume 7.0 L Neutrophils (%) (Auto) 77.6 H Lymphocytes (%) (Auto) 14.8 L Monocytes (%) (Auto) 6.2 Eosinophils (%) (Auto) 0.9 Basophils (%) (Auto) 0.5 Neutrophils # (Auto) 9.0 H Lymphocytes # (Auto) 1.7 Monocytes # (Auto) 0.7 Eosinophils # (Auto) 0.1 Basophils # (Auto) 0.1 CBC Comment Erythrocyte Sedimentation Rate 5 Sodium Level 139 Potassium Level 3.9 Chloride Level 103 Carbon Dioxide Level 26.3 Anion Gap 10 Blood Urea Nitrogen 12 Creatinine 1.16 H Estimated GFR/1.73 m2 64 BUN/Creatinine Ratio 10.3 Glucose Level 136 H Lactic Acid Level 2.0 Calcium Level 8.5 Total Bilirubin 0.4 Aspartate Amino Transf (AST/SGOT) 17 Alanine Aminotransferase (ALT/SGPT) 32 Alkaline Phosphatase 125 H C-Reactive Protein 9.38 H Total Protein 7.0 Albumin 3.3 L Globulin 3.7 Albumin/Globulin Ratio 0.9 L Procalcitonin < 0.05 Chemistry Comments Microbiology Date/Time Source Procedure Growth Status 04/18/25 00:35 Blood Arm Right Blood Culture - Preliminary NEGATIVE (LESS THAN 24 HOURS) Resulted Medical Decision Making Findings Patient is here with a cellulitis failed outpatient antibiotic therapy. He is not septic. When I evaluated the patient he did not appear to have a knee effusion minimal pain with passive range of motion he is afebrile CRP is nine his sed rates normal in his white count is only slightly elevated so I do not feel that he is septic arthritis. Plan is for admission for IV antibiotics since he has failed outpatient antibiotic therapy. He received IV vancomycin. He had a DVT ultrasound and x-ray both were negative. Departure Disposition: ADMITTED INPATIENT Admitted to Inpatient Unit: to hospitalist Admission Level of Care: Med/Surg Impression: Primary Impression: Cellulitis Qualified Codes: L03.115 - Cellulitis of right lower limb Condition: Stable Referrals: NO PRIMARY CARE PROVIDER (PCP) Education Educated: Patient Educated regarding: diagnosis, treatment Signature Scribe Signature: no scribe Attestation: no scribe COLLETTE URBINA MD Apr 18, 2025 07:48
[2025-04-18] MEDS ORDERED: magnesium sulf-water 2g/50mL 50 ML IV PRN (08:35)
[2025-04-18] MEDS ORDERED: magnesium Cl slow-release 64mg tablet PO PRN (08:35)
[2025-04-18] MEDS ORDERED: morphine 2 MG/ML inj. syringe IV PRN (08:35)
[2025-04-18] MEDS ORDERED: magnesium sulf-water 4G/100mL 100 ML IV PRN (08:35)
[2025-04-18] MEDS ORDERED: ondansetron/PF 4mg/2ml inj IV PRN (08:35)
[2025-04-18] MEDS ORDERED: potassium Cl 20 mEq SR tablet PO PRN ×2 (08:35)
[2025-04-18] MEDS ORDERED: acetaminophen 325mg tablet PO PRN (08:35)
[2025-04-18] MEDS ORDERED: potassium Cl 40MEQ/1/2NS 520ml 520 ML IV PRN (08:35)
[2025-04-18 13:30] VITALS: BP 138/71; PULSE 70; RESP 18; TEMP 97.4; O2SAT 99
--- NOTE | 2025-04-18 17:32 | HISTORY AND PHYSICAL ---
History & Physical Providers to ~ History of Present Illness Reason for Admit\Complaint: Right leg wound History of Present Illness 59 years old male presented to the ER for evaluation of right leg wound and cellulitis. Patient states that he was playing with his dog when he had a small abrasion. He has been on Bactrim but the pain and swelling has continued to worse in the wound is getting worse as well. Patient denies having any fever chills nausea vomiting. Patient denies having any chest pain palpitations orthopnea PND or ankle edema. Denies having any focal neurological symptoms. He has been admitted for cellulitis and ulcer of the right leg. Allergies: Coded Allergies: No Known Allergies (Unverified , 02/13/19) Home Medications Home Medications Active Baclofen 10 Mg Tablet 1 Tab PO Q8H 30 Days Reported No Home Medications (Home Med List) Each Past Medical History Past Medical History None Past Surgical History Surgical History Comment None Family History Family History: Family history was reviewed; no changes noted. Past Social History Social History Comment Patient states he does not drink or do any drugs. Smokes 4-5 cigarettes per day. Health Maintenance Health Maintenance Current on his immunizations ROS ROS All other systems are reviewed and are negative except for as mentioned in HPI. Exam Vitals: Vital Signs Date Time Temp Pulse Resp B/P (MAP) Pulse Ox O2 Delivery O2 Flow Rate FiO2 04/18/25 13:30 97.4 70 18 138/71 (93) 99 Room Air 04/18/25 10:58 0 General: Awake alert cooperative in no acute distress HEENT: Normocephalic atraumatic pupils round reactive to light and accommodation, extraocular movements intact, sclera anicteric, conjunctiva pinkish, moist oral mucosa, no rash or ulcers. Neck: Supple, no JVD, trachea midline, no lymphadenopathy. Chest: Clear to auscultation, no wheezes crackles or rhonchi. Cardiovascular: Regular rate rhythm, no murmur gallop or rub. Abdomen: Soft nontender, no organomegaly. Extremities: No cyanosis clubbing , edema of the right leg noted Central Nervous System: Nonfocal. Moves all four extremities Musculoskeletal: No joint swelling or deformities noted. Skin: Noted to have a ulcer/wound on the right anterior lower leg. Scab over it noted. Surrounding erythema noted. Diagnostic Data Last Recorded Lab Results: 04/18/25 0031 04/18/25 0031 Additional Plan 59 years old male presented to the ER for evaluation of wound on the right leg which he developed after he had an abrasion of the right leg from his dog. 1. Right leg cellulitis/ulcer: Failed outpatient treatment. We will start him on IV vancomycin and monitor 2. Code status: He wishes to be full 3. DVT prophylaxis: SCDs and early ambulation 4. Expected length of stay: 2-3 days. Date of Service: Apr 18, 2025 Billing Provider: ALMA RYDER MD Common Visit Codes: [id number] INP/OBS CARE (MOD) ALMA RYDER MD Apr 18, 2025 17:32
--- NOTE | 2025-04-18 17:56 | Visit Coding Note ---
Date of Service: Apr 17, 2025 Billing Provider: ALMA RYDER MD Common Visit Codes: [id number] INP/OBS CARE (MOD) ALMA RYDER MD Apr 18, 2025 17:56
[2025-04-18 18:00] VITALS: BP 131/75; PULSE 65; RESP 16; TEMP 98.2; O2SAT 98
[2025-04-18] MEDS: K and/or MAG REPLACEMENT MC SCH (20:00)
[2025-04-18] MEDS: vancomycin/NS 1 GM ADD-VANTAGE 250 ML IV SCH (21:50)
[2025-04-18 22:00] VITALS: BP 137/73; PULSE 64; RESP 18; TEMP 99.1; O2SAT 96
[2025-04-19] MEDS: HYDROcodone/acetaminophen 5mg/325mg tablet PO PRN (02:37)
[2025-04-19 04:53] LABS: BASOPHILS # (AUTO) 0.1 X10'3 (0-0.2); BASOPHILS % (AUTO) 0.6 % (0-1); EOSINOPHILS # (AUTO) 0.2 X10'3 (0-0.9); EOSINOPHILS % (AUTO) 1.6 % (0-6); HEMATOCRIT 41.1 % (42.0-52.0); HEMOGLOBIN 14.2 g/dl (14.0-17.9); LYMPHOCYTES # (AUTO) 2.4 X10'3 (1.1-4.8); LYMPHOCYTES % (AUTO) 22.1 % (21-51); MEAN CORPUSCULAR HEMOGLOBIN 28.7 PG (27.0-31.0); MEAN CORPUSCULAR HGB CONC 34.5 g/dL (33.0-36.5); MONOCYTES # (AUTO) 0.7 X10'3 (0-0.9); MONOCYTES % (AUTO) 6.7 % (2-12); NEUTROPHILS # (AUTO) 7.6 X10'3 (1.8-7.7); PLATELET COUNT 241 X10'3 (140-440); RED BLOOD COUNT 4.96 X10'6 (4.70-6.10); RED CELL DISTRIBUTION WIDTH 13.5 % (11.5-14.5); WHITE BLOOD COUNT 11.1 X10'3 (4.5-11.0)
[2025-04-19 05:14] LABS: ALBUMIN 2.7 G/DL (3.4-5.0); ANION GAP 9 (8-16); BLOOD UREA NITROGEN 12 MG/DL (7-18); BUN/CREATININE RATIO 11.1 (10.0-20.0); CALCIUM 8.6 MG/DL (8.5-10.1); CHLORIDE 107 MMOL/L (99-107); CREATININE 1.08 MG/DL (0.60-1.10); GLUCOSE 133 MG/DL (70-104); MAGNESIUM 1.9 MG/DL (1.5-2.4); POTASSIUM 4.5 MMOL/L (3.5-5.1); SODIUM 144 MMOL/L (135-145); TOTAL CARBON DIOXIDE 28.1 MMOL/L (24-32); eCRCL 73 ML/MIN; eGFR 70 ML/MIN
[2025-04-19 06:00] VITALS: BP 125/67; PULSE 63; RESP 20; TEMP 97.9; O2SAT 98
[2025-04-19 08:00] VITALS: RESP 18; O2SAT 99
[2025-04-19 10:00] VITALS: BP 137/68; PULSE 79; RESP 18; TEMP 98.1; O2SAT 98
--- NOTE | 2025-04-19 12:32 | PROGRESS NOTE ---
Daily Progress Note Providers to CC ~ Antibiotic Timeout Antibiotic Ordered?: Yes Subjective No new complaints. Feeling better Objective Vital Signs Date Time Temp Pulse Resp B/P (MAP) Pulse Ox O2 Delivery O2 Flow Rate FiO2 04/19/25 10:00 98.1 79 18 137/68 (91) 98 Room Air 04/19/25 08:00 0.0 Result Diagram: 04/19/259 04/19/25 043 Awake alert cooperative in no acute distress HEENT normocephalic atraumatic extraocular movements are intact Neck supple, no JVD Chest: Clear to auscultation, no wheezes or rhonchi Heart: Regular rate rhythm, no murmur or gallop rub Abdomen is soft, nontender, no organomegaly Extremities no cyanosis clubbing or edema Skin: Improving erythema and ulcer on the right lower leg Other Results Medications reviewed Problem\Assessment\Plan 59 years old male presented to the ER for evaluation of worsening erythema and ulcer of the right lower leg despite being on p.o. antibiotics for four days. Patient was playing with his dog when he got an abrasion to begin with 1. Cellulitis/right lower leg wound: Failed outpatient treatment. Continue IV antibiotics 2. Disposition: Likely home in a.m. Date of Service: Apr 19, 2025 Billing Provider: ALMA RYDER MD Common Visit Codes: [id number] INP/OBS CARE(LOW) ALMA RYDER MD Apr 19, 2025 12:32
[2025-04-19] MEDS: VANCOMYCIN LEVEL IV ONE (17:30)
[2025-04-19 18:00] VITALS: BP 140/6; PULSE 77; RESP 16; TEMP 98.6; O2SAT 97
[2025-04-19 22:00] VITALS: BP 129/69; PULSE 68; RESP 20; TEMP 99; O2SAT 97
[2025-04-20 04:59] LABS: BASOPHILS # (AUTO) 0.1 X10'3 (0-0.2); BASOPHILS % (AUTO) 0.7 % (0-1); EOSINOPHILS # (AUTO) 0.2 X10'3 (0-0.9); EOSINOPHILS % (AUTO) 1.7 % (0-6); HEMATOCRIT 44.4 % (42.0-52.0); HEMOGLOBIN 15.2 g/dl (14.0-17.9); LYMPHOCYTES # (AUTO) 2.4 X10'3 (1.1-4.8); LYMPHOCYTES % (AUTO) 23.8 % (21-51); MEAN CORPUSCULAR HEMOGLOBIN 28.6 PG (27.0-31.0); MEAN CORPUSCULAR HGB CONC 34.2 g/dL (33.0-36.5); MEAN CORPUSCULAR VOLUME 83.6 FL (78-98); MONOCYTES # (AUTO) 0.5 X10'3 (0-0.9); MONOCYTES % (AUTO) 5.2 % (2-12); NEUTROPHILS # (AUTO) 6.9 X10'3 (1.8-7.7); NEUTROPHILS % (AUTO) 68.6 % (42-75); PLATELET COUNT 288 X10'3 (140-440); RED BLOOD COUNT 5.31 X10'6 (4.70-6.10); RED CELL DISTRIBUTION WIDTH 13.5 % (11.5-14.5)
[2025-04-20 05:22] LABS: ANION GAP 10 (8-16); BLOOD UREA NITROGEN 13 MG/DL (7-18); BUN/CREATININE RATIO 13.3 (10.0-20.0); CALCIUM 8.5 MG/DL (8.5-10.1); CHLORIDE 107 MMOL/L (99-107); CREATININE 0.98 MG/DL (0.60-1.10); GLUCOSE 118 MG/DL (70-104); POTASSIUM 4.1 MMOL/L (3.5-5.1); SODIUM 142 MMOL/L (135-145); eCRCL 80 ML/MIN; eGFR 78 ML/MIN
[2025-04-20 06:00] VITALS: BP 126/77; PULSE 56; RESP 16; TEMP 98.5; O2SAT 96
[2025-04-20 08:00] VITALS: RESP 16; O2SAT 95
[2025-04-20 10:00] VITALS: BP 127/71; PULSE 61; RESP 16; TEMP 98.2; O2SAT 95
[2025-04-20] MEDS ORDERED: DOXY100C2 PO (13:11)
--- NOTE | 2025-04-20 15:53 | DISCHARGE SUMMARY ---
Discharge Summary Providers to CC ~ Discharge Summary Admission Diagnosis: Cellulitis Hospital Course DATE OF ADMISSION: 04/18/2025 DATE OF DISCHARGE: 04/20/2025 Discharge Diagnosis\Comment: Right leg ulcer and cellulitis Operations\Procedures: Vascular ultrasound Consultants: None Complications: None Condition on DC: Stable New Medications: Doxycycline Hyclate (Doxycycline Hyclate) 100 Mg Capsule 1 CAP PO Q12H for 7 Days, #14 CAP Continued Medications: Baclofen (Baclofen) 10 Mg Tablet 1 TAB PO Q8H for 30 Days, #90 TAB 0 Refills Home Med List (No Home Medications) Each Discharge Summary: Reason for admission: 59 years old male presented to the ER for evaluation of right leg wound and cellulitis. Patient was playing with his dog which led to a small abrasion. Patient has been on Bactrim however pain and swelling continued and the wound got worse. Please refer to admission H&P for more details Hospital course: Patient was admitted on the ortho floor in the hospital course as follows. 1. Right leg wound/cellulitis: Treated with IV vancomycin. Wound care was done. His wound bed has significantly improved and there is much less discharge. Patient has been discharged on p.o. doxycycline and is advised to follow up with his PCP 2. DVT was ruled out with a negative ultrasound Discharge exam: Examined the patient on the day of discharge. Awake alert cooperative in no acute distress HEENT normocephalic atraumatic extraocular movements are intact Neck supple, no JVD Chest: Clear to auscultation, no wheezes or rhonchi Heart: Regular rate rhythm, no murmur or gallop rub Abdomen is soft, nontender, no organomegaly Extremities no cyanosis clubbing or edema Skin: Improving erythema and ulcer on the right lower leg Disposition: Home *Problems/Diagnosis: (1) Wound cellulitis Status: Acute Total Time Spent on D/C: Up to 30 Minutes Date of Service: Apr 20, 2025 Billing Provider: ALMA RYDER MD Common Visit Codes: [id number] DISCH DAY <30MIN ALMA RYDER MD Apr 20, 2025 15:53
== END 2025-04-20 15:30 | disposition home or self-care (01) | DRG 383 ==
LOC: ER 23:23 → ED HOLD 04-18 08:43 → EDBEDREQ 04-18 11:48 → ORTHO 4S 04-18 12:33
PROVIDERS: ADMIT Internal Medicine; ATTEND Internal Medicine
DX: L03.115 Cellulitis of right lower limb (principal); S81.801A Unspecified open wound, right lower leg, initial encounter; F17.210 Nicotine dependence, cigarettes, uncomplicated; S80.811A Abrasion, right lower leg, initial encounter; X58.XXXA Exposure to other specified factors, initial encounter; Y93.89 Activity, other specified; Y92.89 Other specified places as the place of occurrence of the external cause; Y99.8 Other external cause status
CPT/HCPCS: 36415; 73564; 80048; 80053; 80202; 83605; 83735; 84145; 85025; 85651; 86140; 87040; 87081; 93971; 96365; 96366; 96367; 96375; 99285; A6449; G0378; J1885; J3370; J7030